=== PATIENT | male | born 1990 | race Asian ===

== ENCOUNTER 2018-05-06 08:26 | Emergency (ER) | payer OTHER ==
[~2018-05-06] VITALS: Ht 170.2 cm; Wt 87.1 kg
[2018-05-06] MEDS ORDERED: KETOROLAC 30 MG/1 ML IM ONE (09:30)
[2018-05-06] MEDS ORDERED: ALBUTEROL/IPRATROPIUM 2.5MG/0.5MG, 3 ML NPPB ONE (09:30)
[2018-05-06] MEDS ORDERED: KETOROLAC 30 MG/1 ML ONE (09:33)
[2018-05-06] MEDS ORDERED: ALBUTEROL/IPRATROPIUM 2.5MG/0.5MG, 3 ML ONE (09:38)
[2018-05-06 09:40] LABS: BASOPHILS # (AUTO) 0.05 x10^3/uL (0-0.1); BASOPHILS % (AUTO) 1 % (0-1); EOSINOPHILS # (AUTO) 0.69 x10^3/uL (0-0.4); EOSINOPHILS % (AUTO) 10 % (1-7); LYMPHOCYTES # (AUTO) 3.26 x10^3/uL (1-3.4); LYMPHOCYTES % (AUTO) 47 % (22-44); MD NO; MEAN CORPUSCULAR HEMOGLOBIN 31.3 pg (27.5-34.5); MEAN CORPUSCULAR HGB CONC 33.7 g/dL (33.2-36.2); MEAN CORPUSCULAR VOLUME 92.8 fL (81-97); MEAN PLATELET VOLUME 6.9 fL (7.4-10.4); MONOCYTES # (AUTO) 0.31 x10^3/uL (0.2-0.8); MONOCYTES % (AUTO) 5 % (2-9); NEUTROPHILS # (AUTO) 2.61 x10^3/uL (1.8-6.8); NEUTROPHILS % (AUTO) 38 % (42-75); PLATELET COUNT 351 x10^3/uL (130-400); RED BLOOD COUNT 5.36 x10^6/uL (4.38-5.82)
[2018-05-06 09:44] LABS: ALBUMIN 4.2 g/dL (3.4-5.0); ANION GAP 8 mmol/L (5-15); CALCIUM 8.8 mg/dL (8.5-10.1); CHLORIDE 104 mmol/L (98-107); CREATININE 1.11 mg/dL (0.7-1.3)
[2018-05-06 09:49] LABS: TROPONIN I < 0.015 ng/mL (0.000-0.045)
[2018-05-06 10:25] VITALS: BP 123/65
== END 2018-05-06 10:56 | disposition home or self-care (01) ==
LOC: ED 09:47
DX: R07.89 Other chest pain (principal); R06.00 Dyspnea, unspecified
CPT/HCPCS: 36415; 71046; 80048; 82040; 84484; 85025; 85379; 93005; 94640; 96372; 99285; J1885; J7620